=== PATIENT | male | born 1980 | race Caucasian/White ===

== ENCOUNTER 2020-10-11 10:56 | Emergency (ER) | payer SELFPAY ==
[2020-10-11 12:26] VITALS: BP 118/86; PULSE 59; RESP 22; TEMP 37.1; O2SAT 100; BMI 27.7
--- NOTE | 2020-10-11 12:32 | PC.NURSE ---
RIGHT LOWER LUNG IS DIMISHED
[2020-10-11 12:57] VITALS: BP 139/89; PULSE 58; RESP 20; TEMP 36.6; O2SAT 100; BMI 27.6
--- NOTE | 2020-10-11 13:00 | ED.ASTHMA ---
HPI - Asthma General Chief Complaint: Asthma Stated Complaint: Asthma - SOB Time Seen by Provider: 10/11/20 13:00 History of Present Illness HPI Narrative: Patient complains of feeling short of breath and anxious for past 3 days, today the feeling of shortness of breath got worse He has had no chest pain no palpitations no nausea no vomiting no dizziness no fainting no feeling faint no headache no calf pain no leg swelling no fever no chills no cough Patient says he has frequent episodes of anxiety and hyperventilation but no depression no feelings of self-harm does not hear voices Related Data Home Medications Medication Instructions Recorded Confirmed albuterol sulfate INHALATION 10/11/20 Previous Rx's Medication Instructions Recorded lorazepam [Ativan] 1 mg PO TID PRN #14 tab 10/11/20 lorazepam [Ativan] 1 mg PO TID PRN #14 tab 10/11/20 Allergies Allergy/AdvReac Type Severity Reaction Status Date / Time No Known Allergies Allergy Verified 10/11/20 12:54 Review of Systems Review of Systems: ROS is positive for shortness of breath and anxiety There is no headache there is no fever no chills no runny nose no ear pain no sore throat no neck pain there is no chest pain no palpitations, there is no exertional symptoms or there is no change with exertion there is no sweating from the forehead the nausea no vomiting no diarrhea no leg swelling no calf pain no numbness no weakness no dizziness no fainting Yes all other systems are reviewed and are negative [facility] Past Medical History Attestation statement: The following information was validated with the patient. [facility] Narrative: Medical history is asthma Medical History (Updated 10/11/20 @ 16:31 by SHERRILL Tavares) Asthma Social History Social History Smoked in Last 30 Days: No Use of substances other than those prescribed or required for medical reasons: No Advance Directives: No Advance Directives Information Provided: No Physical Exam Vital Signs: Vital Signs: Last Vital Signs Temp 98.3 F 10/11/20 15:24 Pulse 57 10/11/20 15:24 Resp 16 10/11/20 15:24 BP 137/84 10/11/20 15:24 Pulse Ox 100 10/11/20 15:24 Body Mass Index 27.6 Patient is A&O x3, no respiratory distress and speaking full sentence but bleed breathing at a rapid rate around 24 bpm The pharynx is clear and well hydrated the neck is supple the chest is clear to auscultation with full equal symmetric breath sounds the heart rate and rhythm is regular no murmur the abdomen is soft and nontender the extremities there is no edema no calf tenderness or swelling Skin there is no rash Neuro he is interacting appropriately, balance is normal there is no focal neurologic deficit Course Course Course Narrative: Workup had negative D-dimer negative troponin normal chest x-ray no acute findings on EKG Patient was treated for hyperventilation and anxiety paper bag and Ativan and felt much better afterward with respiratory rate in full sentences, no respiratory distress and he was discharged [facility] - Asthma Lab Data Attestation: I reviewed the patient's lab results. Result diagrams: 10/11/20 13:59 10/11/20 13:59 Labs: Lab Results 10/11/20 10/11/20 10/11/20 Range/Units 13:59 13:59 13:59 WBC 11.7 H (4.8-10.8) X10*3/uL RBC 5.49 (4.60-5.80) X10*6/uL Hgb 17.4 (14.0-18.0) g/dl Hct 49.4 (42-52) % MCV 90.0 (80-98) fL MCH 31.7 (27.0-33.0) pg MCHC 35.2 (31.0-36.0) g/dl RDW 11.5 (11.0-16.0) % Plt Count 209 (160-400) X10*3/uL MPV 10.8 (9.4-12.4) fL Immature Gran % (Auto) 0.7 H (0.0-0.4) % Neut % (Auto) 69.4 (45-73) % Lymph % (Auto) 19.0 L (20-40) % [place] % (Auto) 7.7 (2-11) % Eos % (Auto) 2.6 (0-4) % Baso % (Auto) 0.6 (0-2) % Lymph # (Auto) 2.2 (1.2-4.9) X10*3/uL [place] # (Auto) 0.9 (0.1-1.2) X10*3/uL Eos # (Auto) 0.3 (0.0-0.4) X10*3/uL Baso # (Auto) 0.1 (0.0-0.2) X10*3/uL Abs Immat Gran (auto) 0.08 H (0.00-0.03) X10*3/uL Absolute Neuts (auto) 8.1 (2.0-8.3) X10*3/uL Absolute Nucleated RBC 0.000 (0.0-0.012) X10*3/uL Nucleated RBC % (auto) 0.0 (0.0-0.2) /100WBC D-Dimer NG/ML Sodium 137 (135-145) mmol/L Potassium 3.5 (3.3-5.1) mmol/l Chloride 106 (96-108) mmol/L Carbon Dioxide 21 L (22-29) mmol/L Anion Gap 14 (12-20) BUN 12 (9-16) mg/dL Creatinine 1.26 (0.5-1.4) mg/dL Estim Creat Clear Calc 88.0 Estimated GFR > 60 Random Glucose 84 (60-115) mg/dL Calcium 9.4 (8.4-10.2) mg/dL Troponin I High Sens < 3.5 (<3.5-35.0) ng/L Coronavirus (PCR) (Negative) COVID-19 PCR Influenza Type A (PCR) (Negative) Influenza Type B (PCR) (Negative) RSV RNA Qual (PCR) (Negative) 10/11/20 10/11/20 10/11/20 Range/Units 13:59 14:25 16:43 WBC (4.8-10.8) X10*3/uL RBC (4.60-5.80) X10*6/uL Hgb (14.0-18.0) g/dl Hct (42-52) % MCV (80-98) fL MCH (27.0-33.0) pg MCHC (31.0-36.0) g/dl RDW (11.0-16.0) % Plt Count (160-400) X10*3/uL MPV (9.4-12.4) fL Immature Gran % (Auto) (0.0-0.4) % Neut % (Auto) (45-73) % Lymph % (Auto) (20-40) % [place] % (Auto) (2-11) % Eos % (Auto) (0-4) % Baso % (Auto) (0-2) % Lymph # (Auto) (1.2-4.9) X10*3/uL [place] # (Auto) (0.1-1.2) X10*3/uL Eos # (Auto) (0.0-0.4) X10*3/uL Baso # (Auto) (0.0-0.2) X10*3/uL Abs Immat Gran (auto) (0.00-0.03) X10*3/uL Absolute Neuts (auto) (2.0-8.3) X10*3/uL Absolute Nucleated RBC (0.0-0.012) X10*3/uL Nucleated RBC % (auto) (0.0-0.2) /100WBC D-Dimer < 200 NG/ML Sodium (135-145) mmol/L Potassium (3.3-5.1) mmol/l Chloride (96-108) mmol/L Carbon Dioxide (22-29) mmol/L Anion Gap (12-20) BUN (9-16) mg/dL Creatinine (0.5-1.4) mg/dL Estim Creat Clear Calc Estimated GFR Random Glucose (60-115) mg/dL Calcium (8.4-10.2) mg/dL Troponin I High Sens (<3.5-35.0) ng/L Coronavirus (PCR) NEGATIVE (Negative) COVID-19 PCR Cancelled Influenza Type A (PCR) NEGATIVE (Negative) Influenza Type B (PCR) NEGATIVE (Negative) RSV RNA Qual (PCR) NEGATIVE (Negative) ECG Data Attestation: I personally reviewed and interpreted this ECG as follows: Interpretation: EKG is sinus bradycardia 55 per p.r. is 156 QRS is 94 there are no acute ST changes, QTC is normal Discharge Plan Discharge Clinical Impression: Anxiety hyperventilation Clinical Impression: (Ruled Out): Chronic obstructive asthma with exacerbation Patient Disposition: Home, Self-Care Additional Instructions: Your symptoms improved with breathing in a paper bag and Ativan a medication for anxiety so we will be sending her home with a prescription for Ativan Your workup included evaluation to rule out blood clot, heart attack, pneumonia and all testing was negative Try to get a primary care doctor as there are many preventative treatments for chronic anxiety Return to the ER any time for difficulty breathing, chest pain, dizziness, any worse condition or any concerns Prescriptions: New lorazepam [Ativan] 1 mg tablet 1 mg PO TID PRN (Reason: anxiety) Qty: 14 RF: 0 lorazepam [Ativan] 1 mg tablet 1 mg PO TID PRN (Reason: anxiety) Qty: 14 RF: 0 No Action albuterol sulfate 90 mcg/actuation HFA aerosol inhaler inhalation RF: 0 Stand Alone Forms: Work/School Release Interventions: ED Discharge Assessment Last Done: 10/11/20 17:25 Discharge Date/Time: 10/11/20 17:25
--- NOTE | 2020-10-11 13:12 | ECG_ITS ---
Test Reason : SOB Blood Pressure : / mmHG Vent. Rate : 055 BPM Atrial Rate : 055 BPM P-R Int : 156 ms QRS Dur : 094 ms QT Int : 438 ms P-R-T Axes : 049 -31 -22 degrees QTc Int : 419 ms Sinus bradycardia Left anterior fascicular block Nonspecific T wave abnormality Inferior leads Abnormal ECG No previous ECGs available Referred By: Ludwin Gonzales Electronically Signed By:BHAVESH NEVAREZ MD
[2020-10-11] MEDS: LORazepam 1 MG TABLET PO ×2 (13:25→15:29)
[2020-10-11 13:46] VITALS: BP 125/80; PULSE 54; RESP 22; O2SAT 100
--- NOTE | 2020-10-11 13:48 | XR_ITS ---
EXAMINATION: XR CHEST CLINICAL INFORMATION: Shortness of breath. COMPARISON: None TECHNIQUE: Frontal view of the chest was obtained. FINDINGS: No significant abnormality is noted involving the heart, lungs, mediastinum, bony thorax or soft tissues. XR/XR chest 1V IMPRESSION: No acute cardiopulmonary process.
[2020-10-11 14:04] LABS: MANUAL DIFF FLAG NO
[2020-10-11 14:20] LABS: Basophils Absolute Auto 0.1 X10*3/uL (0.0-0.2); Basophils Percent Auto 0.6 % (0-2); Eosinophils Absolute Auto 0.3 X10*3/uL (0.0-0.4); Eosinophils Percent Auto 2.6 % (0-4); Hematocrit 49.4 % (42-52); Hemoglobin 17.4 g/dl (14.0-18.0); Imm Gran Abs Auto 0.08 X10*3/uL (0.00-0.03); Imm Gran Pct Auto 0.7 % (0.0-0.4); Lymphocytes Absolute Auto 2.2 X10*3/uL (1.2-4.9); Mean Corpuscular HGB Conc 35.2 g/dl (31.0-36.0); Mean Corpuscular Hemoglobin 31.7 pg (27.0-33.0); Mean Platelet Volume 10.8 fL (9.4-12.4); Monocytes Absolute Auto 0.9 X10*3/uL (0.1-1.2); Monocytes Percent Auto 7.7 % (2-11); Neutrophils Absolute Auto 8.1 X10*3/uL (2.0-8.3); Neutrophils Percent Auto 69.4 % (45-73); Platelet Count 209 X10*3/uL (160-400); Red Blood Count 5.49 X10*6/uL (4.60-5.80); Red Cell Distribution Width 11.5 % (11.0-16.0); White Blood Count 11.7 X10*3/uL (4.8-10.8)
[2020-10-11 14:27] LABS: D Dimer < 200 NG/ML
[2020-10-11 14:35] LABS: Anion Gap 14 (12-20); Blood Urea Nitrogen 12 mg/dL (9-16); Calcium 9.4 mg/dL (8.4-10.2); Carbon Dioxide 21 mmol/L (22-29); Chloride 106 mmol/L (96-108); Estimated Glomerular Filt Rate > 60; Glucose Random 84 mg/dL (60-115); Potassium 3.5 mmol/l (3.3-5.1); Sodium 137 mmol/L (135-145)
[2020-10-11 14:43] LABS: Troponin-I High Sensitivity < 3.5 ng/L (<3.5-35.0)
[2020-10-11 15:24] VITALS: BP 137/84; PULSE 57; RESP 16; TEMP 36.8; O2SAT 100
[2020-10-11 18:00] LABS: Influenza A PCR NEGATIVE (Negative); Influenza B PCR NEGATIVE (Negative); Resp Syncy Virus RNA Qual PCR NEGATIVE (Negative); SARS COV2 PCR INHOUSE NEGATIVE (Negative)
== END 2020-10-11 17:25 | disposition home or self-care (01) ==
PROVIDERS: Physician Assistant Medical; Emergency Provider Emergency Medicine
DX: F41.1 Generalized anxiety disorder (principal); F43.0 Acute stress reaction; R06.02 Shortness of breath; Z79.899 Other long term (current) drug therapy; Z20.828 Contact with and (suspected) exposure to other viral communicable diseases
CPT/HCPCS: 0241U; 36415; 71045; 80048; 84484; 85025; 85379; 93005; 99284; U0003

== ENCOUNTER → 2024-12-13 14:48 | Outpatient (BNVA) | payer SELFPAY | PROVIDERS: Visit Provider Physician Assistant Medical | DX: Z02.79 Encounter for issue of other medical certificate (principal) ==